=== PATIENT | female | born 1960 | race Two or more races ===

== ENCOUNTER 2024-05-06 13:30 | Outpatient (RCR) | payer MEDICAID, SELFPAY ==
--- NOTE | 2024-04-24 09:05 | PTNOTE_ITS ---
PT OP Initial Eval Patient Information Outpatient Physical Therapy Treatment Date: 04/24/24 Visit Reasons: cervical pain Medical Diagnosis: Z11.1 M54.2 Treatment Dx #1: neck pain Treatment Dx #2: decreased neck ROM Start of Care: 04/24/24 Date of Onset: 10/31/23 Smoking Status Smoking Status: Never smoker Initial Assessment Subjective: Pt is 63 yr old german speaking female s/p cervical surgery in [place] and she says hardware was put on 4 levels. The neck feels tight with turning and the mm's feel tired. PMH: lumbar surgery 2022, Imaging: none Pt goal: to move the neck more to turn head. Objective: C/S AROM: ? Ext 40% with pain at end-range ? Flexion full with posterior neck pain ? L rotation: 30% of full? R rotation: 30% of full ? TTP: moderate of lower C/S paraspinals around C4-7 and UT?s ? 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 Assessment: Pt presents with myofascial tenderness of lower C/S and decreased ROM consistent with cervical fusion unknown levels. Pt may benefit from skilled therapy to meet goals and she has fair rehab potential. 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 Ind with HEP ? 2. Improved B rotation to 50% of full ? 3. Decreased TTP of lower C/S from mod to min ? 4. Pt will turn head L to R x5 with <=4/10 pain Treatment Plan 1. Manual therapy ? 2. Therex ? 3. Modalities as indicated, estim, moist heat, ice Frequency and Duration: 1-2x a week for 12 visits Certification Dates: 04/24/24 to 07/23/24 Procedure Charges OP PT Eval Mod Complex 30 minutes: Yes
--- NOTE | 2024-04-29 09:34 | PT.ODAYNRPT ---
PT Outpatient Daily Note OP Daily Note Outpatient Physical Therapy Treatment Date: 04/29/24 Visit Reasons: cervical pain Subjective: Same as time of eval Objective: See F/S for therex MT: STM B UT's and C/S paraspinals x7' Assessment: Difficulty with cervical retraction. Mod TTP of B upper traps with MT Plan: Cont per POC Length of Time (minutes) of Treatment: 30 Minutes Procedure Charges Therapeutic Exercise 30 minutes: Yes
--- NOTE | 2024-05-06 13:59 | PT.ODAYNRPT ---
PT Outpatient Daily Note OP Daily Note Outpatient Physical Therapy Treatment Date: 05/06/24 Visit Reasons: cervical pain Subjective: Pt reports neck pain is present, frustrated with slow progress after neck pain. Objective: Please see flow sheet for the loly list. Assessment: Pt demonstrates increase thoracic kyphosis posture, added postural exercises. Plan: Continue with pOC. Procedure Charges Therapeutic Exercise 30 minutes: Yes
== END 2024-05-06 23:59 | disposition home or self-care (01) ==
LOC: CPTX 13:30
PROVIDERS: PCP Obstetrics & Gynecology; Referring Provider Obstetrics & Gynecology; Visit Provider Obstetrics & Gynecology
DX: M54.2 Cervicalgia (principal)
CPT/HCPCS: 97110; 97162

== ENCOUNTER 2024-05-13 13:40 | Outpatient (RCR) | payer MEDICAID, SELFPAY ==
--- NOTE | 2024-05-13 14:09 | PT.ODAYNRPT ---
PT Outpatient Daily Note OP Daily Note Outpatient Physical Therapy Treatment Date: 05/13/24 Visit Reasons: NECK PAIN Subjective: Pt reports neck continues to be painful and has weakness in both hands. Objective: Please see flow sheet for the ex list. Assessment: Pt demonstrates poor activity tolerance, Plan: Continue with POC. Length of Time (minutes) of Treatment: 30 Minutes Procedure Charges Therapeutic Exercise 30 minutes: Yes
== END 2024-06-05 23:59 | disposition home or self-care (01) ==
LOC: CPTX 13:40
PROVIDERS: PCP Obstetrics & Gynecology; Referring Provider Obstetrics & Gynecology; Visit Provider Obstetrics & Gynecology
DX: M54.2 Cervicalgia (principal); M62.48 Contracture of muscle, other site; Z98.890 Other specified postprocedural states
CPT/HCPCS: 97110

== ENCOUNTER 2024-07-03 10:30 | Outpatient (RCR) | payer MEDICAID, SELFPAY ==
--- NOTE | 2024-06-17 14:14 | PT.ODAYNRPT ---
PT Outpatient Daily Note OP Daily Note Outpatient Physical Therapy Treatment Date: 06/17/24 Visit Reasons: Neck pain Subjective: Pt reports neck is feeling a little better, notices since the weather has been warmer she has less pain in her neck. Objective: Please see flow sheet for ther ex list. Assessment: Pt tolerated interventions with muscle fatigue requires rest breaks in between reps. Plan: Continue with pOC. Length of Time (minutes) of Treatment: 30 Minutes Procedure Charges Therapeutic Exercise 30 minutes: Yes
--- NOTE | 2024-06-24 14:28 | PT.ODAYNRPT ---
PT Outpatient Daily Note OP Daily Note Outpatient Physical Therapy Treatment Date: 06/24/24 Visit Reasons: Neck pain Subjective: The neck feels stiff with turning the head Objective: See F/S for therex MHP: x5' MT: STM R upper trap x7' Assessment: Pt has moderate TTP of R UT with manual therapy. Limited C/S rotation Plan: Continue per POC Length of Time (minutes) of Treatment: 30 Minutes Procedure Charges Therapeutic Exercise 30 minutes: Yes
--- NOTE | 2024-07-03 12:44 | PT.ODAYNRPT ---
PT Outpatient Daily Note OP Daily Note Outpatient Physical Therapy Treatment Date: 07/03/24 Visit Reasons: Neck pain Subjective: Pt reports neck is doing better, progress is slow still has pain. Objective: Please see flow sheet for ther ex list. Assessment: Performed light c/s ROM and scar mobilization, pt tolerated well. Plan: Continue with POC. Length of Time (minutes) of Treatment: 30 Minutes Procedure Charges Therapeutic Exercise 30 minutes: Yes
== END 2024-07-06 23:59 | disposition home or self-care (01) ==
LOC: CPTX 10:30
PROVIDERS: PCP Obstetrics & Gynecology; Referring Provider Obstetrics & Gynecology; Visit Provider Obstetrics & Gynecology
DX: M54.2 Cervicalgia (principal); Z98.890 Other specified postprocedural states
CPT/HCPCS: 97110

== ENCOUNTER 2024-08-05 08:00 | Outpatient (RCR) | payer MEDICAID, SELFPAY ==
--- NOTE | 2024-07-10 09:51 | PT.ODAYNRPT ---
PT Outpatient Daily Note OP Daily Note Outpatient Physical Therapy Treatment Date: 07/10/24 Visit Reasons: Neck pain Subjective: Less pain in the neck with turning the head Objective: See F/S for therex MHP: x5' MT: STM R upper trap x7' Assessment: Pt has moderate TTP of R UT with manual therapy. Limited C/S rotation Plan: Continue per POC Length of Time (minutes) of Treatment: 30 Minutes Procedure Charges Therapeutic Exercise 30 minutes: Yes
--- NOTE | 2024-07-17 08:36 | PT.ODAYNRPT ---
PT Outpatient Daily Note OP Daily Note Outpatient Physical Therapy Treatment Date: 07/17/24 Visit Reasons: Neck pain Subjective: The upper neck feels like it wants to pop and theres pain in the R UE Objective: See F/S for therex MHP: x5' MT: STM R upper trap x7' Assessment: Pt has moderate TTP of R UT with manual therapy. Limited C/S rotation consistent with C1-2 limitations and R UE radiculopathy. Plan: Continue per POC Length of Time (minutes) of Treatment: 30 Minutes Procedure Charges Therapeutic Exercise 30 minutes: Yes
--- NOTE | 2024-07-25 14:16 | PT.ODAYNRPT ---
PT Outpatient Daily Note OP Daily Note Outpatient Physical Therapy Treatment Date: 07/25/24 Visit Reasons: Neck pain Subjective: The upper neck feels like it wants to pop and theres pain in the R UE Objective: See F/S for therex MHP: x5' MT: STM R upper trap x7' Assessment: Pt has moderate TTP of R UT with manual therapy. Limited C/S rotation consistent with C1-2 limitations and R UE radiculopathy. She has difficulty with cervical retraction. Plan: Continue per POC Length of Time (minutes) of Treatment: 30 Minutes Procedure Charges Therapeutic Exercise 30 minutes: Yes
--- NOTE | 2024-08-05 08:38 | PT.ODAYNRPT ---
PT Outpatient Daily Note OP Daily Note Outpatient Physical Therapy Treatment Date: 08/05/24 Visit Reasons: Neck pain Subjective: The upper neck feels like it wants to pop and theres pain in the R UE Objective: See F/S for therex MHP: x5' MT: STM R upper trap x5' Assessment: Pt has moderate TTP of R UT with manual therapy. Limited C/S rotation consistent with C1-2 limitations and R UE radiculopathy. She has difficulty with cervical retraction. Plan: Continue per POC Length of Time (minutes) of Treatment: 30 Minutes Procedure Charges Therapeutic Exercise 30 minutes: Yes
== END 2024-08-05 23:59 | disposition home or self-care (01) ==
LOC: CPTX 08:00
PROVIDERS: PCP Obstetrics & Gynecology; Referring Provider Obstetrics & Gynecology; Visit Provider Obstetrics & Gynecology
DX: M54.2 Cervicalgia (principal)
CPT/HCPCS: 97110

== ENCOUNTER 2024-08-12 08:11 | Outpatient (RCR) | payer MEDICAID, SELFPAY ==
--- NOTE | 2024-08-12 17:58 | PT.ODS1RPT ---
PT OP Progress/Discharge Note Date of Service: 08/12/24 Progress Note/DC Note Progress Note/Discharge Note: DC Note Patient Information Visit Reasons: Neck pain Service Continue Service or Discharge: Discharge Discharge Date: 08/12/24 Status Subjective: Pt reports maybe a little improvement in the neck but it still hurts and she points to the upper traps at the base of the neck as site of continued pain Objective: C/S AROM: Rotation: 30% of full B Flexion: full Extension: 40% with pain TTP: moderate of lower C/S paraspinals and UT's Assessment: Pt has attended the eval and 11 Rx sessions with limited progress with therapy goals due to continued pain and TTP of the C/S and limited rotation ROM. She hasn't met goals and feels temporary relief after therapy visits that lasts about half a day. Insurance authorization is . Plan: D/C with HEP Procedure Charges Therapeutic Exercise 30 minutes: Yes
== END 2024-09-05 23:59 | disposition home or self-care (01) ==
LOC: CPTX 08:11
PROVIDERS: PCP Obstetrics & Gynecology; Referring Provider Obstetrics & Gynecology; Visit Provider Obstetrics & Gynecology
DX: M54.2 Cervicalgia (principal); M62.48 Contracture of muscle, other site; Z98.890 Other specified postprocedural states
CPT/HCPCS: 97110